=== PATIENT | female | born 2005 | race Caucasian/White ===

== ENCOUNTER 2025-05-23 20:26 | Emergency (ER) | payer OTHER | END 2025-05-23 22:30 | disposition home or self-care (01) | LOC: CSHERS 20:26 | DX: S62.635A Displaced fracture of distal phalanx of left ring finger, initial encounter for closed fracture (principal); Z55.6 Problems related to health literacy; Z75.3 Unavailability and inaccessibility of health-care facilities; X58.XXXA Exposure to other specified factors, initial encounter | CPT/HCPCS: 99283 ==